=== PATIENT | male | born 1960 | race Caucasian/White ===

== ENCOUNTER → 2021-10-13 09:28 | Outpatient (CLI) | payer OTHER, SELFPAY ==
--- NOTE | 2021-10-13 09:32 | DI.NM.S_ITS ---
PROCEDURE: NM TATUM PERF SPECT R&S PHARM Rest and pharmacological stress myocardial perfusion SPECT with gated imaging and ejection fraction RADIOPHARMACEUTICAL: 25.4 mCi Tc-99m tetrafosmin IV at rest and 25.6 mCi Tc-99m tetrafosmin IV at peak effect of pharmacological stress. [id number]-[id number] was performed. INDICATIONS: Other forms of angina pectoris TECHNIQUE: Radiopharmaceutical was injected at peak stress test, and also at rest. SPECT images were obtained. SPECT myocardial perfusion images were displayed in short axis, horizontal long axis, and vertical long axis views. Gated images were reviewed using [employer] software. COMPARISON: None. CARDIAC STRESS: A pharmacologic stress test was performed under the supervision of an attending staff, using an infusion of Regadenoson. Hemodynamic data: There is normal blood pressure and heart rate response to pharmacologic stress. Symptoms: The patient denied anginal chest pain. EKG: No diagnostic changes of ischemia; no ectopy. FINDINGS: Raw data: There is good myocardial uptake of radiotracer. No significant motion artifacts. Jqlb-bp-xqoou ratio is 0.28 (normal is less than 0.38 for tetrafosmin tracer). Left ventricle function: Gated images demonstrate mildly decreased left ventricular wall thickening. There is basal inferior wall hypokinesis. No transient ischemic dilation; TID is 1.03 (normal less than 1.3). Left ventricle resting end diastolic volume is 172 mL. Left ventricle stress ejection fraction is 50% however rest ejection fraction calculated at 54%; normal range is above 45%. Myocardial perfusion: There is a medium size, moderate to severe intensity fixed basal to mid inferior wall defect that has improved but not entirely normal perfusion on prone imaging. There is also a small size, severe intensity fixed apical defect with preserved wall motion consistent with apical thinning versus artifact. No definite reversible perfusion defects. IMPRESSION: Intermediate risk study. Basal inferior wall perfusion defect which appears consistent with prior basal inferior infarct with cinthia-infarct ischemia. Decrease in calculated LVEF from rest to stress with normal TID. Increased LVEDV. Dictated by: Yana Phillips D.O. on 10/14/2021 at 13:25 Approved by: Yana Phillips D.O. on 10/14/2021 at 13:34
--- NOTE | 2021-10-14 11:43 | PM.TREADMILL ---
Cardiac Stress Test Report Referral & Results Indication: RBBB; PVCS; DIZZINESS WITH EXERTION Rest ECG: RBBB Procedure Note: WALKING CJ Impression: AFTER CJ INJ. HAD MINIMAL DYSPNEA; NO CHEST DISCOMFORT; BASELINE ECG RBBB WITH PVCS; NO SIGNIFICANT ST CHANGES AFTER CJ INJ. FREQUENT PVCS; NO AMINOPH NEEDED. MIBI SCAN PENDING;RECEPTIONIST CLERK TO REVIEW; JUAN FRANCISCO COLUNGA Please note: Actual ECG tracings can be found in the PACS system.
== END ==
PROVIDERS: Family Provider Family Medicine; PCP Family Medicine; Referring Provider Internal Medicine; Visit Provider Internal Medicine
DX: I20.8 Other forms of angina pectoris (principal); I45.10 Unspecified right bundle-branch block; I49.3 Ventricular premature depolarization; R42 Dizziness and giddiness
CPT/HCPCS: 78452; 93017; A9502; J2785

== ENCOUNTER → 2022-09-18 09:48 | Outpatient (CLI) | payer OTHER, SELFPAY ==
--- NOTE | 2022-09-18 | DI.RAD.S_ITS ---
PROCEDURE: XR CALCANEOUS LT MIN 2V INDICATIONS: L HEEL PAIN TECHNIQUE: Two views of the calcaneus were acquired. COMPARISON: None. FINDINGS: Bones: No fractures or dislocations. No suspicious bony lesions. Plantar calcaneal and retrocalcaneal enthesophytes. Soft tissues: No suspicious calcifications. Achilles tendon appears normal. IMPRESSION: Left calcaneus without acute fracture or dislocation. Plantar calcaneal and retrocalcaneal enthesopathy. Dictated by: García Brown M.D. on 09/18/2022 at 10:22 Approved by: García Brown M.D. on 09/18/2022 at 10:23
== END ==
PROVIDERS: Family Provider Family Medicine; PCP Family Medicine; Referring Provider Family Medicine; Visit Provider Family Medicine
DX: M79.672 Pain in left foot (principal); M77.32 Calcaneal spur, left foot
CPT/HCPCS: 73650

== ENCOUNTER → 2023-04-19 12:25 | Outpatient (CLI) | payer OTHER, SELFPAY ==
--- NOTE | 2023-04-19 | DI.ECHO.S_ITS ---
[facility] +---------+ : : [address] [place] : : : : [id number] : : : : Phone: [phone]+ Echocardiogram Report + + :Name: YEIMY MERRITT Study Date: 04/19/2023 Height: 82 in : :[facility] ReadingLocation: Weight: 301 lb : : Gender: Male BSA: 2.8 m2 : :: 1960 Age: 62 yrs BP: 116/88 mmHg: :Reason For Study: Atrial Fibrillation : :Ordering Physician: ELLIE, : :KENYETTA Performed By: Jessica Gonzalez : :Referring: KENYETTA ARGUETA : + + Interpretation Summary The ejection fraction is estimated to be 60-65%. The right ventricular systolic function is normal. The IVC is of normal diameter and collapses greater than 50% with a sniff. This suggests a low right atrial pressure of 3 mm Hg. No significant valvular abnormality. The patient was in atrial fibrillation with heart rates between 47-115 bpm during the exam. Procedure: A two-dimensional transthoracic echocardiogram with color flow and Doppler was performed. The study quality was technically adequate. There is no prior echocardiogram noted for this patient. A contrast injection of Definity was performed to improve assessment of LV function. The patient was in atrial fibrillation with heart rates between 47-115 bpm during the exam. Left Ventricle: The left ventricle is mildly dilated. The ejection fraction is estimated to be 60-65%. Diastolic function could not be accurately assessed due to atrial fibrillation. Right Ventricle: The right ventricle is mild to moderately dilated. The right ventricular systolic function is normal. Atria: The left atrium is moderately dilated. The right atrium is moderately dilated. There is no Doppler evidence for an interatrial shunt. Mitral Valve: The mitral valve is normal. There is no mitral valve stenosis. There is mild mitral regurgitation. Aortic Valve: The aortic valve is trileaflet. There is mild aortic valve sclerosis. There is no hemodynamically significant valvular aortic stenosis. There is trace aortic regurgitation. Tricuspid Valve: The tricuspid valve is normal. There is no tricuspid stenosis. There is trace tricuspid regurgitation. Pulmonic Valve: The pulmonic valve leaflets are thin and pliable; valve motion is normal. There is no pulmonic valvular stenosis. There is trace pulmonic regurgitation. Great Vessels: The aortic root is mildly dilated. The ascending aorta is mildly enlarged. The pulmonary artery is normal size. The IVC is of normal diameter and collapses greater than 50% with a sniff. This suggests a low right atrial pressure of 3 mm Hg. Pericardium/ Pleura There is no pericardial effusion. There is no pleural effusion. MMode/2D Measurements & Calculations LVIDd: 6.4 cm LVOT diam: 2.1 cm LVIDs: 5.3 cm Ao root diam: 4.3 cm FS: 17.2 % asc Aorta Diam: 4.1 cm IVSd: 1.7 cm LVPWd: 1.2 cm LV cabral. diameter/BSA (cm/m^2): 2.3 LV sys. diameter/BSA (cm/m^2): 1.9 LA A2 area: 26.5 cm2 RA long axis: 6.6 cm LA A4 area: 28.4 cm2 RA area: 28.0 cm2 LA length (vol): 6.2 cm RA vol: 100.5 ml LA vol: 103.7 ml RA : 36.1 ml/m2 LA vol index: 37.2 ml/m2 RVD1 (basal): 5.0 cm LVLs ap4: 7.6 cm LVLd ap2: 7.9 cm TAPSE_phl: 2.7 cm LVLs ap2: 6.9 cm Doppler Measurements & Calculations Ao V2 max: 101.1 cm/sec LVOT Max Hi: 73.5 cm/sec Ao V2 mean: 68.5 cm/sec LV V1 max P.2 mmHg Ao max P.0 mmHg LV V1 VTI: 14.3 cm Ao mean P.2 mmHg CARMENCITA(I,D): 2.4 cm2 Ao V2 VTI: 20.4 cm CARMENCITA(V,D): 2.5 cm2 sev ratio: 0.70 CARMENCITA indexed to BSA (cm^2/m^2): 0.87 TR max hi: 175.0 cm/sec SV(LVOT): 49.4 ml TR max P.3 mmHg PA V2 max: 84.0 cm/sec PA V2 mean: 58.4 cm/sec PA mean P.0 mmHg PA pr(Accel): 29.0 mmHg AV VR_phl: 0.73 CARMENCITA(VTI)/BSA_phl: 0.87 Reading Physician:JUSTIN
== END ==
PROVIDERS: Family Provider Family Medicine; PCP Family Medicine; Referring Provider Internal Medicine; Visit Provider Internal Medicine
DX: I48.91 Unspecified atrial fibrillation (principal); I08.0 Rheumatic disorders of both mitral and aortic valves; I77.810 Thoracic aortic ectasia; I77.89 Other specified disorders of arteries and arterioles
CPT/HCPCS: 93306; Q9957

== ENCOUNTER → 2024-05-02 13:52 | Outpatient (CLI) | payer MEDICARE, OTHER, SELFPAY ==
--- NOTE | 2024-05-02 13:57 | DI.RAD.S_ITS ---
PROCEDURE: XR FEMUR RT MIN 2V INDICATIONS: fracture of right femur TECHNIQUE: To views of the femur were acquired. COMPARISON: [facility] [place], CR, XR FEMUR 2+ VIEWS RIGHT, 09/21/2023, 17:23. FINDINGS: Bones: Right femur fixation hardware is stable. Right femur intertrochanteric fracture is stable alignment. Bridging trabecula noted at the proximal right femur fracture site compatible with progression of healing. Soft tissues: No suspicious soft tissue calcifications or masses. IMPRESSION: Intertrochanteric right femur fracture healed in anatomic alignment following ORIF. No acute osseous lesion. If symptoms and/or clinical suspicion for pathology persists, further assessment with advanced imaging (e.g. CT, MRI or bone scan) should be considered. Dictated by: Janeth Kahn MD, PhD on 05/02/2024 at 14:47 Approved by: Janeth Kahn MD, PhD on 05/02/2024 at 14:48
== END ==
LOC: RAD 13:55
PROVIDERS: Family Provider Family Medicine; PCP Family Medicine; Referring Provider Family Medicine; Visit Provider Family Medicine
DX: S72.141D Displaced intertrochanteric fracture of right femur, subsequent encounter for closed fracture with routine healing (principal); X58.XXXD Exposure to other specified factors, subsequent encounter; Z96.698 Presence of other orthopedic joint implants
CPT/HCPCS: 73552